=== PATIENT | female | born 1965 ===

== ENCOUNTER 2018-11-23 10:39 | Emergency (ER) | payer OTHER ==
[~2018-11-23] VITALS: Ht 170.2 cm; Wt 88.9 kg
[2018-11-23] MEDS ORDERED: TENORMIN100 M1 (10:54)
== END 2018-11-23 13:43 | disposition home or self-care (01) ==
LOC: ER 10:39
DX: S39.012A Strain of muscle, fascia and tendon of lower back, initial encounter (principal); M54.31 Sciatica, right side; X50.3XXA Overexertion from repetitive movements, initial encounter; Y93.89 Activity, other specified; Y92.69 Other specified industrial and construction area as the place of occurrence of the external cause; Y99.8 Other external cause status